=== PATIENT | female | born 1955 | race Caucasian/White ===

== ENCOUNTER 2017-05-22 09:12 | Inpatient (IN) | payer OTHER ==
[~2017-05-22] VITALS: Ht 170.2 cm; Wt 58.5 kg
[~2017-05-22 09:12] MED LIST: ACETAMINOPHEN-1 EAC1 PO; EVISTA PO; FLEXERIL PO; IBUPROFEN 800800 M1 PO; NEXIUM 40 MG CA40 M1 PO; NORCO 5-325 TA1 EACH PO; ZANAFLEX4 M1 PO; ZYRTEC 10 MG TA10 MG PO
[2017-05-22 09:34] VITALS: BP 127/82
[2017-05-22] MEDS ORDERED: ROPIVACAINE INH (09:37)
[2017-05-22 10:03] LABS: ABSOLUTE LYMPHOCYTES 1.2 thou/uL (0.8-5.3); ABSOLUTE MONOCYTES 1.3 thou/uL (0.0-1.2); ABSOLUTE NEUTROPHILS 6.2 thou/uL (1.6-8.1); BASOPHILS 0.5 %; HEMATOCRIT 48.9 % (37.0-47.0); HEMOGLOBIN 16.3 gm/dL (12.0-15.0); LYMPHOCYTES 13.4 %; MCH 29.5 pg (26.0-34.0); MCHC 33.3 g/dL (28.0-37.0); MCV 88.6 fL (80.0-100.0); MONOCYTES 14.8 %; MPV 9.1 fl. (7.2-11.1); NUCLEATED RBCS 0 /100WBC; PLATELET COUNT* 104 thou/uL (150-400); POLYS 71.3 %; RBC 5.52 mil/uL (4.20-5.00); RDW-CV 13.9 % (10.5-14.5); WBC 8.7 thou/uL (4.0-11.0)
[2017-05-22 10:13] LABS: INFLUENZA A ANTIGEN None Detected (None Detect); INFLUENZA B ANTIGEN None Detected (None Detect)
[2017-05-22 10:15] LABS: ANION GAP 9 mmol/L (7-16); APTT 29.7 Seconds (25.0-31.3); BUN 10 mg/dL (7-18); CALCIUM 9.3 mg/dL (8.5-10.1); CHLORIDE 99 mmol/L (98-107); CO2 27 mmol/L (21-32); GLUCOSE 114 mg/dL (70-99); PROTIME 9.8 Seconds (9.20-11.50); SODIUM 135 mmol/L (136-145)
[2017-05-22 10:27] LABS: ALBUMIN 4.1 g/dL (3.4-5.0); ALKALINE PHOSPHATASE 73 U/L (46-116); LIPASE 121 U/L (73-393); MAGNESIUM 2.1 mg/dL (1.8-2.4); SGOT 24 U/L (15-37); SGPT 29 U/L (30-65); TOTAL BILIRUBIN 0.3 mg/dL (<0.1-1.0); TROPONIN-I LEVEL <0.06 ng/mL (<0.06)
[2017-05-22 10:45] LABS: NT-PRO BRAIN NAT PEPTIDE 322 pg/mL (<300)
--- NOTE | 2017-05-22 12:10 | NUR ---
PT GIVEN LUNCH TRAY
--- NOTE | 2017-05-22 15:30 | NUR ---
A WHITE FEMALE AGE 62 ADMITTED TO ROOM 317 WITH CHEIF DIAGNOSIS OF BRONCHITIS, COPD EXAC, RESP FAILURE. PT TRANSPORTED VIA CART AND WAS ABLE TO TRANSFER SELF TO BED. PT HAS NONPRODUCTIVE "BARKY" TYPE COUGH. PT IS ON 02 AT 2.0 LITERS WITH O2 SATS 96%. PT REMANS SLIGHTLY DYSPENIC WHEN TALKING. RIGHT A/C SL NOTED. PT TOLERATING PO FLUIDS. FALL AGREEMENT SIGNED.
[2017-05-22 15:36] VITALS: BP 107/63
--- NOTE | 2017-05-22 16:22 | EKG ---
[place] [address] ELECTROCARDIOGRAM REPORT Name: ALEC BRIGGS Room: [address] ADM IN [facility].#: [id number] Admission: 05/22/17 Attend Phys: Yan Austin MD Discharge: Date of : 57 Report #: [id number] THIS REPORT FOR: //name// [facility] ED Test Date: 2017-05-22 Test Time: 09:43:54 Pat Name: ALEC BRIGGS Department: Room: [facility] Gender: F Volunteer Specialist: Lisa HARTMANN : 1955 Requested By: Jermaine Cifuentes Order Number: [id number] MD: Al Gaviria Measurements Intervals [place] Rate: 85 P: 79 IA: 130 QRS: 65 QRSD: 96 T: 89 QT: 356 QTc: 424 Interpretive Statements Sinus rhythm No previous ECG available for comparison Electronically Signed On 05-22-2017 16:21:52 LEAD ATG DEVELOPER by Al Gaviria [email or web address] <ELECTRONICALLY SIGNED> By: Al Gaviria MD, [facility] 05/22/17 1621 0943 0943 Al Gaviria MD, FACC /EPI
--- NOTE | 2017-05-22 19:03 | NUR ---
PT DOING WELL. SL INTACT. PT DID NOT LIKE SUPPER TRAY PT IS EATING BOX LUNCH. PT DENIES ANY COMPLAINTS. PT IS PROGRESSING TOWARDS GOALS.
[2017-05-23] VITALS: BP 120/65
[2017-05-23 05:36] LABS: HEMATOCRIT 46.7 % (37.0-47.0); HEMOGLOBIN 15.7 gm/dL (12.0-15.0); MCHC 33.6 g/dL (28.0-37.0); MCV 89.3 fL (80.0-100.0); MPV 9.7 fl. (7.2-11.1); NUCLEATED RBCS 0 /100WBC; PLATELET COUNT* 199 thou/uL (150-400); RBC 5.24 mil/uL (4.20-5.00); WBC 9.6 thou/uL (4.0-11.0)
--- NOTE | 2017-05-23 06:00 | NUR ---
PATIENT SLEPT MOST OF THE NIGHT. IV REMAINS SALINE LOCKED. PATIENT REMAINS ON OXYGEN AT 2L PER NASAL CANNULA. WILL CONTINUE TO MONITOR.
[2017-05-23 06:08] LABS: CALCIUM 9.3 mg/dL (8.5-10.1); CREATININE 0.8 mg/dL (0.6-1.3); POTASSIUM 4.6 mmol/L (3.5-5.1)
[2017-05-23 06:16] LABS: ABSOLUTE LYMPHOCYTES 1.2 thou/uL (0.8-5.3); ABSOLUTE MONOCYTES 0.1 thou/uL (0.0-1.2); ABSOLUTE NEUTROPHILS 8.3 thou/uL (1.6-8.1); ANISOCYTOSIS 1+; PLATELET ESTIMATE ADEQUATE; POIKILOCYTOSIS 1+
[2017-05-23 08:45] VITALS: BP 122/65
--- NOTE | 2017-05-23 09:40 | NUR ---
INITIAL ASSESSMENT: Pt evaluated for d/c planning needs. Reviewed chart and spoke with nurse and pt. Pt is alert and oriented. Pt lives in house with spouse and grandchildren. Pt was independent with ADL's and is employed outside the home at [employer]. Pt has cane from previous foot injury, but does not use. Pt has not had home health in the past. Pt plans on returning home on d/c from hospital. Will remain available to assist as needed.
[2017-05-23 16:05] VITALS: BP 101/64
--- NOTE | 2017-05-23 16:10 | NUR ---
PATIENT REMAINS ON 2L NC. NO COMPLAINTS THIS SHIFT. IV REMAINS SL, SCHED ABX AND STEROIDS. UP AMBULATING IN HALLWAY WITHOUT DIFFICULTY.
[2017-05-23 20:30] VITALS: BP 112/64
[2017-05-24 05:08] LABS: ABSOLUTE LYMPHOCYTES 1.3 thou/uL (0.8-5.3); ABSOLUTE NEUTROPHILS 14.1 thou/uL (1.6-8.1); BASOPHILS 0.1 %; HEMOGLOBIN 14.3 gm/dL (12.0-15.0); MCH 29.7 pg (26.0-34.0); MCHC 33.2 g/dL (28.0-37.0); MCV 89.5 fL (80.0-100.0); MONOCYTES 6.3 %; MPV 10.3 fl. (7.2-11.1); NUCLEATED RBCS 0 /100WBC; POLYS 85.6 %; RBC 4.81 mil/uL (4.20-5.00); RDW-CV 13.8 % (10.5-14.5); WBC 16.5 thou/uL (4.0-11.0)
--- NOTE | 2017-05-24 05:10 | NUR ---
ASSUMED CARE OF PT AT 1900 PT ALERT AND ORIENTED X4 VS AND ASSESSMENT STABLE. PT DENIED ANY COMPLAINTS AND SLEPT THROUGH THE NIGHT WILL MONITOR.
[2017-05-24 05:19] LABS: POTASSIUM 4.8 mmol/L (3.5-5.1)
[2017-05-24 06:44] LABS: CLUMPED PLTS MODERATE; GIANT PLATELETS FEW
[2017-05-24 06:48] LABS: PLATELET COUNT* 100 thou/uL (150-400)
[2017-05-24 08:30] VITALS: BP 119/70
[2017-05-24 15:57] VITALS: BP 100/65
--- NOTE | 2017-05-24 16:04 | NUR ---
PATIENT UP AND AMBULATING THE HALLS THIS SHIFT. REMAINS ON RA, NO SOA NOTED. IV ABX AND STEROIDS CHANGED TO PO THIS SHIFT. POSSIBLE DISCHARGE TOMORROW.
--- NOTE | 2017-05-24 16:33 | NUR ---
Following for d/c planning needs. Physician said that pt may be ready for d/c on Saturday. Pt said she plans on returning home on Saturday with her and son. Will remain available to assist as needed.
[2017-05-24 20:00] VITALS: BP 131/75
--- NOTE | 2017-05-25 07:31 | NUR ---
PATIENT SLEPT PART OF THE NIGHT. PATIENT REMAINS ON ROOM AIR SATTING 96%. PATIENT STARTED COMPLAINING OF RIGHT SIDE RIB/ABDOMINAL PAIN. PAIN PILLS WERE GIVEN ONCE. PATIENT STATES SHE THINKS IT MIGHT BE HER DIVERTICULITIS ACTING UP. PATIENT IS POSSIBLY GOING HOME TODAY. WILL CONTINUE TO MONITOR.
[2017-05-25 08:00] VITALS: BP 131/76
[2017-05-25 16:00] VITALS: BP 120/80
--- NOTE | 2017-05-25 16:06 | NUR ---
PT UP IN HALLS WITH STEADY GAIT. PT REPORTS RIGHT UPPER QUAD/RIB PAIN. PAIN WELL CONTROLLED WITH PO MEDS. PT TOLERATING PO WELL.
[2017-05-25 16:52] LABS: HEMATOCRIT 45.5 % (37.0-47.0); MCH 29.4 pg (26.0-34.0); MCHC 32.9 g/dL (28.0-37.0); MCV 89.6 fL (80.0-100.0); MPV 10.1 fl. (7.2-11.1); RBC 5.08 mil/uL (4.20-5.00); RDW-CV 14.4 % (10.5-14.5); WBC 11.1 thou/uL (4.0-11.0)
[2017-05-25 17:03] LABS: CALCIUM 9.1 mg/dL (8.5-10.1); MAGNESIUM 2.1 mg/dL (1.8-2.4); POTASSIUM 4.4 mmol/L (3.5-5.1)
[2017-05-25 23:53] VITALS: BP 133/62
[2017-05-26 04:21] LABS: HEMATOCRIT 42.3 % (37.0-47.0); HEMOGLOBIN 14.1 gm/dL (12.0-15.0); MCH 29.6 pg (26.0-34.0); MCHC 33.4 g/dL (28.0-37.0); MCV 88.5 fL (80.0-100.0); MPV 9.9 fl. (7.2-11.1); RBC 4.78 mil/uL (4.20-5.00); RDW-CV 13.9 % (10.5-14.5); WBC 9.7 thou/uL (4.0-11.0)
[2017-05-26 04:51] LABS: CALCIUM 8.7 mg/dL (8.5-10.1); POTASSIUM 4.1 mmol/L (3.5-5.1)
--- NOTE | 2017-05-26 06:13 | NUR ---
PATIENT SLEPT MOST OF THE NIGHT. PATIENT WAS GIVEN PAIN MEDICINE ONCE THIS SHIFT. PATIENT IS NPO FOR AN ABDOMINAL ULTRASOUND. WILL CONTINUE TO MONITOR.
[2017-05-26 08:00] VITALS: BP 124/67
[2017-05-26 15:59] VITALS: BP 133/78
[2017-05-26] MEDS ORDERED: PROTONIX40 M1 PO (16:56)
[2017-05-26] MEDS ORDERED: AUGMENTIN 875-1 EACH PO (17:01)
[2017-05-26] MEDS ORDERED: PREDNISONE 20 M20 MG PO (17:02)
[2017-05-26] MEDS ORDERED: MUCINEX DM ER1 EACH PO (17:03)
[2017-05-26] MEDS ORDERED: MIRALAX17 GM PO (17:07)
[2017-05-26 17:08] VITALS: BP 133/78
[2017-05-26 17:10] VITALS: BP 133/78
== END 2017-05-26 17:47 | disposition home or self-care (01) | DRG 189 ==
LOC: M.ERS 09:12 → M.3W 10:37 → M.TBA-ER 10:37 → M.3W 15:47
PROVIDERS: Family Medicine; ADMIT Internal Medicine
DX: J96.21 Acute and chronic respiratory failure with hypoxia (principal); J44.1 Chronic obstructive pulmonary disease with (acute) exacerbation; J44.0 Chronic obstructive pulmonary disease with (acute) lower respiratory infection; E78.00 Pure hypercholesterolemia, unspecified; K21.9 Gastro-esophageal reflux disease without esophagitis; Z77.22 Contact with and (suspected) exposure to environmental tobacco smoke (acute) (chronic); J20.9 Acute bronchitis, unspecified; D75.1 Secondary polycythemia; E86.0 Dehydration; Z90.710 Acquired absence of both cervix and uterus; Z87.891 Personal history of nicotine dependence; Z90.49 Acquired absence of other specified parts of digestive tract; Z86.010 Personal history of colon polyps; Z79.899 Other long term (current) drug therapy

== ENCOUNTER 2018-07-14 20:14 | Emergency (ER) | payer OTHER ==
[~2018-07-14] VITALS: Ht 170.2 cm; Wt 56.7 kg
[~2018-07-14 20:14] MED LIST changes: +AUGMENTIN 875-1 EACH PO; +MIRALAX17 GM PO; +MUCINEX DM ER1 EACH PO; +PREDNISONE 20 M20 MG PO; +PROTONIX40 M1 PO; +ROPIVACAINE INH
[2018-07-14 21:21] LABS: ABSOLUTE EOSINOPHILS 0.1 thou/uL (0.0-0.7); ABSOLUTE LYMPHOCYTES 1.9 thou/uL (0.8-5.3); ABSOLUTE MONOCYTES 0.8 thou/uL (0.0-1.2); ABSOLUTE NEUTROPHILS 4.4 thou/uL (1.6-8.1); BASOPHILS 0.5 %; EOSINOPHILS 0.9 %; HEMATOCRIT 44.2 % (37.0-47.0); HEMOGLOBIN 14.9 gm/dL (12.0-15.0); MCH 29.7 pg (26.0-34.0); MCHC 33.8 g/dL (28.0-37.0); MONOCYTES 11.1 %; MPV 9.3 fl. (7.2-11.1); NUCLEATED RBCS 0 /100WBC; POLYS 61.5 %; RBC 5.03 mil/uL (4.20-5.00); RDW-CV 13.7 % (10.5-14.5); WBC 7.1 thou/uL (4.0-11.0)
[2018-07-14 21:25] LABS: ALBUMIN 3.8 g/dL (3.4-5.0); ALKALINE PHOSPHATASE 62 U/L (46-116); ANION GAP 6 mmol/L (7-16); BUN 15 mg/dL (7-18); CALCIUM 9.1 mg/dL (8.5-10.1); CHLORIDE 103 mmol/L (98-107); CO2 28 mmol/L (21-32); GLUCOSE 133 mg/dL (70-99); POTASSIUM 3.7 mmol/L (3.5-5.1); SGOT 24 U/L (15-37); SGPT 26 U/L (30-65); SODIUM 137 mmol/L (136-145); TOTAL BILIRUBIN 0.4 mg/dL (<0.1-1.0); TOTAL PROTEIN 7.1 g/dL (6.4-8.2); TROPONIN-I LEVEL <0.06 ng/mL (<0.06)
[2018-07-14] MEDS ORDERED: XANAX 1 MG TABLE1 MG PO (21:25)
[2018-07-14 22:00] VITALS: BP 147/85
[2018-07-14 22:44] LABS: CLUMPED PLTS MODERATE; PLATELET ESTIMATE ADEQUATE
[2018-07-14 22:45] LABS: LARGE PLATELETS RARE
[2018-07-14 22:55] LABS: PLATELET COUNT* 156 thou/uL (150-400)
--- NOTE | 2018-07-15 12:54 | EKG ---
[place] [address] ELECTROCARDIOGRAM REPORT Name: ALEC BRIGGS Room: [facility]#: [id number] Admission: 07/14/18 Attend Phys: Discharge: 07/14/18 Date of : 57 Report #: [id number] THIS REPORT FOR: //name// [facility] ED Test Date: 2018-07-14 Test Time: 20:29:45 Pat Name: ALEC BRIGGS Department: Room: Gender: F Needle Setter: : 1955 Requested By: Glory Wall Order Number: [id number] MD: Cheko Jones Measurements Intervals [place] Rate: 79 P: 75 UT: 147 QRS: 42 QRSD: 104 T: 62 QT: 406 QTc: 466 Interpretive Statements Sinus rhythm Baseline wander in lead(s) V5 Compared to ECG 05/22/2017 09:43:54 No significant changes Electronically Signed On 07-15-2018 12:54:01 ATMOSPHERIC SCIENCES PROFESSOR by Cheko Jones [email or web address] <ELECTRONICALLY SIGNED> By: Cheko Jones MD, [facility] 07/15/18 1254 28 28 Cheko Jones MD, FACC /EPI
== END 2018-07-14 22:00 | disposition home or self-care (01) ==
LOC: M.ERS 20:14
PROVIDERS: Emergency Medicine
DX: F41.9 Anxiety disorder, unspecified (principal); E78.00 Pure hypercholesterolemia, unspecified; K21.9 Gastro-esophageal reflux disease without esophagitis; Z90.49 Acquired absence of other specified parts of digestive tract; Z90.710 Acquired absence of both cervix and uterus; Z77.22 Contact with and (suspected) exposure to environmental tobacco smoke (acute) (chronic)

== ENCOUNTER 2020-01-23 23:16 | Emergency (ER) | payer OTHER ==
[~2020-01-23] VITALS: Ht 170.2 cm; Wt 59.0 kg
[~2020-01-23 23:16] MED LIST changes: +XANAX 1 MG TABLE1 MG PO
[2020-01-24] MEDS ORDERED: XANAX 1 MG TABLE1 MG PO (00:29)
[2020-01-24 01:05] VITALS: BP 103/64
--- NOTE | 2020-01-25 17:37 | EKG ---
[place] [address] ELECTROCARDIOGRAM REPORT Name: ALEC BRIGGS Room: [facility]#: [id number] Admission: 01/23/20 Attend Phys: Discharge: 01/24/20 Date of : 57 Date of Service: 01/23/20 2328 Report #: [id number] THIS REPORT FOR: //name// [facility] ED Test Date: 2020-01-23 Test Time: 23:28:28 Pat Name: ALEC BRIGGS Department: Room: Gender: F Review Rn: : 1955 Requested By: Glory Wall Order Number: [id number] MD: Aly Sanford Measurements Intervals [place] Rate: 76 P: 74 [place]: 158 QRS: 56 QRSD: 113 T: 45 QT: 417 QTc: 469 Interpretive Statements Sinus rhythm Ventricular premature complex Borderline intraventricular conduction delay WA interval depression Compared to ECG 07/14/2018 20:29:45 Ventricular premature complex(es) now present Electronically Signed On 01-25-2020 17:37:32 CDT by Aly Sanford [email or web address] <ELECTRONICALLY SIGNED> By: Aly Sanford MD, FACC 01/25/20 1737 2328 2328 Aly Sanford MD, [facility] /EPI
== END 2020-01-24 01:05 | disposition home or self-care (01) ==
LOC: M.ERS 23:16
DX: F41.9 Anxiety disorder, unspecified (principal); Z77.22 Contact with and (suspected) exposure to environmental tobacco smoke (acute) (chronic); E78.00 Pure hypercholesterolemia, unspecified; K21.9 Gastro-esophageal reflux disease without esophagitis; Z90.710 Acquired absence of both cervix and uterus

== ENCOUNTER 2020-07-07 12:21 | Emergency (ER) | payer OTHER ==
[~2020-07-07] VITALS: Ht 167.6 cm; Wt 59.0 kg
[2020-07-07 12:54] LABS: ABSOLUTE BASOPHILS 0.1 thou/uL (0.0-0.2); ABSOLUTE EOSINOPHILS 0.1 thou/uL (0.0-0.7); ABSOLUTE LYMPHOCYTES 2.4 thou/uL (0.8-5.3); ABSOLUTE MONOCYTES 0.7 thou/uL (0.0-1.2); ABSOLUTE NEUTROPHILS 5.3 thou/uL (1.6-8.1); BASOPHILS 1.1 %; EOSINOPHILS 1.2 %; HEMATOCRIT 45.4 % (37.0-47.0); HEMOGLOBIN 15.3 gm/dL (12.0-15.0); LYMPHOCYTES 27.9 %; MCH 30.3 pg (26.0-34.0); MCHC 33.7 g/dL (28.0-37.0); MONOCYTES 8.2 %; MPV 8.5 fl. (7.2-11.1); NUCLEATED RBCS 0 /100WBC; POLYS 61.6 %; RBC 5.05 mil/uL (4.20-5.00); RDW-CV 13.8 % (10.5-14.5); WBC 8.6 thou/uL (4.0-11.0)
[2020-07-07 13:10] LABS: URINE BILIRUBIN NEGATIVE (Negative); URINE BLOOD NEGATIVE (Negative); URINE CLARITY CLEAR; URINE COLOR YELLOW; URINE GLUCOSE-RANDOM NEGATIVE (Negative); URINE KETONES NEGATIVE (Negative); URINE LEUKOCYTES-REFLEX NEGATIVE (Negative); URINE NITRITE-REFLEX NEGATIVE (Negative); URINE PROTEIN NEGATIVE (Negative); URINE SPECIFIC GRAVITY <= 1.005 (1.005-1.030); URINE UROBILINOGEN 0.2 E.U./dl (0.2-1.0)
[2020-07-07 13:13] LABS: CREATININE 1.1 mg/dL (0.6-1.3); POTASSIUM 3.5 mmol/L (3.5-5.1)
[2020-07-07 13:17] LABS: ALBUMIN 3.8 g/dL (3.4-5.0); TOTAL BILIRUBIN 0.3 mg/dL (<0.1-1.0)
[2020-07-07 13:37] LABS: PLATELET COUNT* 112 thou/uL (150-400)
[2020-07-07] MEDS ORDERED: HYDROCODON-ACE1 EAC7 PO (15:15)
[2020-07-07 15:37] VITALS: BP 126/74
--- NOTE | 2020-07-07 16:34 | EKG ---
[place] [address] ELECTROCARDIOGRAM REPORT Name: ALEC BRIGGS Room: [facility].#: [id number] Admission: 07/07/20 Attend Phys: Discharge: 07/07/20 Date of : 57 Date of Service: 07/07/20 1229 Report #: [id number] THIS REPORT FOR: //name// [facility] ED Test Date: 2020-07-07 Test Time: 12:29:24 Pat Name: ALEC BRIGGS Department: Room: Gender: F Door Manager: DSL : 1955 Requested By: Bony Christy Order Number: [id number] MD: Aly Sanford Measurements Intervals [place] Rate: 84 P: 81 MN: 133 QRS: 61 QRSD: 98 T: 61 QT: 389 QTc: 460 Interpretive Statements Sinus rhythm Minimal ST depression, anterolateral leads Compared to ECG 01/23/2020 23:28:28 ST (T wave) deviation now present Ventricular premature complex(es) no longer present Electronically Signed On 07-07-2020 16:34:40 HOME CARE MANAGER RN by Aly Sanford [email or web address] <ELECTRONICALLY SIGNED> By: Aly Sanford MD, FACC 07/07/20 1634 1229 1229 Aly Sanford MD, [facility] /EPI
--- NOTE | 2020-07-08 09:26 | EKG ---
[place] [address] ELECTROCARDIOGRAM REPORT Name: ALEC BRIGGS Room: [facility].#: [id number] Admission: 07/07/20 Attend Phys: Discharge: 07/07/20 Date of : 57 Date of Service: 07/07/20 1514 Report #: [id number] THIS REPORT FOR: //name// [facility] ED Test Date: 2020-07-07 Test Time: 15:14:14 Pat Name: ALEC BRIGGS Department: Room: Gender: F Glass Beveller: TDS : 1955 Requested By: Bony Christy Order Number: [id number] MD: Cheko Jones Measurements Intervals [place] Rate: 61 P: 77 SD: 146 QRS: 62 QRSD: 110 T: 60 QT: 442 QTc: 446 Interpretive Statements Sinus rhythm Atrial premature complex Abnormal R-wave progression, early transition Compared to ECG 07/07/2020 12:29:24 Atrial premature complex(es) now present ST (T wave) deviation no longer present Electronically Signed On 07-08-2020 9:26:33 EDUCATIONAL INSTITUTION PRESIDENT by Cheko Jones [email or web address] <ELECTRONICALLY SIGNED> By: Cheko Jones MD, FAC 07/08/20 0926 1514 1514 Cheko Jones MD, FAC /EPI
== END 2020-07-07 15:38 | disposition home or self-care (01) ==
LOC: M.ERS 12:21
PROVIDERS: Emergency Medicine Emergency Medical Services
DX: M94.0 Chondrocostal junction syndrome [Tietze] (principal); R05 Cough; J44.9 Chronic obstructive pulmonary disease, unspecified; E78.00 Pure hypercholesterolemia, unspecified; K21.9 Gastro-esophageal reflux disease without esophagitis; Z90.711 Acquired absence of uterus with remaining cervical stump; Z90.49 Acquired absence of other specified parts of digestive tract; Z79.899 Other long term (current) drug therapy; Z87.891 Personal history of nicotine dependence

== ENCOUNTER → 2021-04-27 | Day surgery (SDC) | payer OTHER ==
[~2021-04-27] MED LIST changes: +HYDROCODON-ACE1 EAC7 PO; +NORCO5 PO; +PROAIR HFA8.5 GM INH; +SINGULAIR 10 MG10 MG PO; +TRELEGY ELLIPT1 EACH INH; +ZOLOFT50 M1 PO
[2021-04-27 06:55] LABS: HEMATOCRIT 45.5 % (37.0-47.0); HEMOGLOBIN 15.3 gm/dL (12.0-15.0); MCHC 33.6 g/dL (28.0-37.0); MCV 89.1 fL (80.0-100.0); RBC 5.11 mil/uL (4.20-5.00); RDW-CV 13.7 % (10.5-14.5); WBC 6.2 thou/uL (4.0-11.0)
[2021-04-27 07:10] LABS: CALCIUM 8.3 mg/dL (8.5-10.1); CREATININE 0.9 mg/dL (0.6-1.3); POTASSIUM 3.7 mmol/L (3.5-5.1)
[2021-04-27 07:20] LABS: ALBUMIN 3.4 g/dL (3.4-5.0); TOTAL BILIRUBIN 0.3 mg/dL (<0.1-1.0); TOTAL PROTEIN 6.5 g/dL (6.4-8.2)
--- NOTE | 2021-04-27 11:55 | EKG ---
[place] [address] ELECTROCARDIOGRAM REPORT Name: ALEC BRIGGS Room: [facility].#: [id number] Admission: 04/27/21 Attend Phys: Buster [place] Discharge: Date of : 57 Date of Service: 04/27/21710 Report #: [id number] THIS REPORT FOR: //name// [facility] Test Date: 2021-04-27 Test Time: 07:11:05 Pat Name: ALEC BRIGGS Department: Room: Gender: Account Director: : 1955 Requested By: Christie Medina Order Number: [id number] MD: Cheko Jones Measurements Intervals [place] Rate: 53 P: 73 NM: 149 QRS: 59 QRSD: 113 T: 67 QT: 454 QTc: 427 Interpretive Statements Sinus rhythm Compared to ECG 07/07/2020 15:14:14 Atrial premature complex(es) no longer present Electronically Signed On 04-27-2021 11:54:44 FISH CLEANER MACHINE TENDER by Cheko Jones [email or web address] <ELECTRONICALLY SIGNED> By: Cheko Jones MD, [facility] 04/27/21 1154 0711 0711 Cheko Jones MD, [facility] /EPI
--- NOTE | 2021-04-29 12:00 | OP ---
[facility] [address] [place] [address] OPERATIVE REPORT Name: ALEC BRIGGS Room: [facility]#: [id number] Admission: 04/27/21 Attend Phys: Buster Prieto Discharge: Date of : 57 Report #: [id number] THIS REPORT FOR: cc: Shantanu Burns MD, Anthony MD Patterson,Buster Williamson MD ~ DATE OF SURGERY: 04/27/2021 PREOPERATIVE DIAGNOSIS: Chronic cholecystitis. POSTOPERATIVE DIAGNOSIS: Chronic cholecystitis. OPERATION: Laparoscopic cholecystectomy. SURGEON: Buster Prieto MD. ANESTHESIA: General. ESTIMATED BLOOD LOSS: Minimal. SPECIMENS: Gallbladder. DESCRIPTION OF PROCEDURE: After informed consent was obtained, the patient was brought to the operating room and placed supine. SCDs were placed and working, preoperative antibiotics were administered. General anesthesia was induced. The abdomen was prepped and draped in the usual sterile fashion. A 10 mm incision was made below the umbilicus. Fascia was incised and a trocar was placed. A pneumoperitoneum was established. Three right upper quadrant 5 mm ports were placed. Gallbladder was grasped at the fundus and retracted cephalad. Infundibulum was grasped and retracted laterally. I dissected out the cystic duct and cystic artery. Cystic plate was fully identified. The cystic duct and artery were clipped and ligated leaving 2 clips on the remaining duct and one remaining artery. Gallbladder was then taken off the liver bed with electrocautery. It was placed in an Endopouch and removed. Fascia was then closed with a [id number] 0 Vicryl. Skin was closed with 4-0 Monocryl. Incisions were dressed with Steri-Strips. COMPLICATIONS: None. DISPOSITION: The patient was taken to recovery in satisfactory condition. <ELECTRONICALLY SIGNED> By: Buster Prieto MD 04/29/21 1200 1127 1203Buster Prieto MD /nt
== END | disposition home or self-care (01) ==
LOC: M.SUR 06:11
PROVIDERS: Anesthesiology; ATTEND Surgery
DX: K81.1 Chronic cholecystitis (principal); R10.11 Right upper quadrant pain; J44.9 Chronic obstructive pulmonary disease, unspecified; E78.00 Pure hypercholesterolemia, unspecified; K21.9 Gastro-esophageal reflux disease without esophagitis; M85.80 Other specified disorders of bone density and structure, unspecified site; F41.9 Anxiety disorder, unspecified; Z98.890 Other specified postprocedural states; Z79.899 Other long term (current) drug therapy; Z91.040 Latex allergy status; Z90.49 Acquired absence of other specified parts of digestive tract; Z87.891 Personal history of nicotine dependence

== ENCOUNTER 2021-05-25 19:53 | Emergency (ER) | payer OTHER ==
[~2021-05-25] VITALS: Ht 170.2 cm; Wt 54.0 kg
[2021-05-25 20:27] LABS: URINE BILIRUBIN NEGATIVE (Negative); URINE BLOOD 2+ (Negative); URINE CLARITY CLEAR; URINE COLOR YELLOW; URINE GLUCOSE-RANDOM NEGATIVE (Negative); URINE KETONES NEGATIVE (Negative); URINE LEUKOCYTES NEGATIVE (Negative); URINE NITRITE NEGATIVE (Negative); URINE PROTEIN NEGATIVE (Negative); URINE SPECIFIC GRAVITY 1.025 (1.005-1.030); URINE UROBILINOGEN 0.2 E.U./dl (0.2-1.0)
[2021-05-25 20:30] LABS: BACTERIA None Seen /HPF (None Seen); SQUAMOUS 0-3 Few /LPF (0-3); URINE RBC 0-2 Rare /HPF (0-2); URINE WBC None Seen /HPF (0-5)
[2021-05-25 20:31] LABS: CASTS None Seen /LPF (None Seen); CRYSTALS None Seen /LPF (None Seen)
[2021-05-25 21:26] LABS: ABSOLUTE BASOPHILS 0.1 thou/uL (0.0-0.2); ABSOLUTE EOSINOPHILS 0.1 thou/uL (0.0-0.7); ABSOLUTE LYMPHOCYTES 1.2 thou/uL (0.8-5.3); ABSOLUTE NEUTROPHILS 3.7 thou/uL (1.6-8.1); HEMATOCRIT 44.7 % (37.0-47.0); HEMOGLOBIN 14.8 gm/dL (12.0-15.0); LYMPHOCYTES 20.4 %; MCH 29.7 pg (26.0-34.0); MCHC 33.1 g/dL (28.0-37.0); MCV 89.9 fL (80.0-100.0); MONOCYTES 16.8 %; MPV 10.3 fl. (7.2-11.1); NUCLEATED RBCS 0 /100WBC; PLATELET COUNT* 82 thou/uL (150-400); POLYS 60.8 %; RBC 4.97 mil/uL (4.20-5.00); RDW-CV 13.3 % (10.5-14.5); WBC 6.1 thou/uL (4.0-11.0)
[2021-05-25 22:04] LABS: CALCIUM 8.7 mg/dL (8.5-10.1)
[2021-05-25 22:08] LABS: ALBUMIN 3.6 g/dL (3.4-5.0); TOTAL BILIRUBIN 0.2 mg/dL (<0.1-1.0); TOTAL PROTEIN 6.4 g/dL (6.4-8.2)
[2021-05-25 22:56] VITALS: BP 140/68
--- NOTE | 2021-05-26 13:11 | EKG ---
[place] [address] ELECTROCARDIOGRAM REPORT Name: ALEC BRIGGS Room: [facility]#: [id number] Admission: 05/25/21 Attend Phys: Discharge: 05/25/21 Date of : 57 Date of Service: 05/25/212151 Report #: [id number] THIS REPORT FOR: //name// [facility] ED Test Date: 2021-05-25 Test Time: 21:52:06 Pat Name: ALEC BRIGGS Department: Room: Gender: F Pad Machine Offbearer: [facility] : 1955 Requested By: Salvatore Santo Order Number: [id number] MD: Cheko Jones Measurements Intervals [place] Rate: 66 P: 70 AL: 143 QRS: 52 QRSD: 108 T: 67 QT: 424 QTc: 445 Interpretive Statements Sinus rhythm Ventricular premature complex Minimal ST depression, anterior leads Compared to ECG 04/27/2021 07:11:05 Ventricular premature complex(es) now present ST (T wave) deviation now present Electronically Signed On 05-26-2021 13:10:55 NAVAL AIRCREWMAN by Cheko Jones [email or web address] <ELECTRONICALLY SIGNED> By: Cheko Jones MD, FAC 05/26/21 1310 51 51 Cheko Jones MD, FAC /EPI
== END 2021-05-25 22:56 | disposition home or self-care (01) ==
LOC: M.ERS 19:53
PROVIDERS: Physician Assistant
DX: R10.11 Right upper quadrant pain (principal); R06.02 Shortness of breath; J44.9 Chronic obstructive pulmonary disease, unspecified; K21.9 Gastro-esophageal reflux disease without esophagitis; E78.00 Pure hypercholesterolemia, unspecified; Z90.49 Acquired absence of other specified parts of digestive tract; Z98.890 Other specified postprocedural states; Z90.710 Acquired absence of both cervix and uterus; Z79.899 Other long term (current) drug therapy; Z91.040 Latex allergy status; Z87.891 Personal history of nicotine dependence

== ENCOUNTER 2021-06-09 23:24 | Emergency (ER) | payer OTHER ==
[~2021-06-09] VITALS: Ht 170.2 cm; Wt 54.0 kg
[2021-06-10 00:22] LABS: ABSOLUTE BASOPHILS 0.1 thou/uL (0.0-0.2); ABSOLUTE EOSINOPHILS 0.1 thou/uL (0.0-0.7); ABSOLUTE LYMPHOCYTES 2.5 thou/uL (0.8-5.3); ABSOLUTE MONOCYTES 0.6 thou/uL (0.0-1.2); ABSOLUTE NEUTROPHILS 3.3 thou/uL (1.6-8.1); EOSINOPHILS 2.1 %; HEMATOCRIT 45.7 % (37.0-47.0); HEMOGLOBIN 15.2 gm/dL (12.0-15.0); LYMPHOCYTES 37.7 %; MCH 30.1 pg (26.0-34.0); MCHC 33.3 g/dL (28.0-37.0); MCV 90.2 fL (80.0-100.0); MONOCYTES 8.6 %; MPV 9.2 fl. (7.2-11.1); NUCLEATED RBCS 0 /100WBC; PLATELET COUNT* 205 thou/uL (150-400); POLYS 50.6 %; RBC 5.07 mil/uL (4.20-5.00); RDW-CV 13.8 % (10.5-14.5); WBC 6.6 thou/uL (4.0-11.0)
[2021-06-10 01:09] LABS: CALCIUM 8.5 mg/dL (8.5-10.1); CREATININE 0.7 mg/dL (0.6-1.3); POTASSIUM 3.6 mmol/L (3.5-5.1)
[2021-06-10 01:14] LABS: ALBUMIN 3.6 g/dL (3.4-5.0); TOTAL BILIRUBIN 0.3 mg/dL (<0.1-1.0); TOTAL PROTEIN 6.9 g/dL (6.4-8.2)
[2021-06-10] MEDS ORDERED: HYDROCODON-ACE1 EAC8 PO ×3 (03:12→11:50)
[2021-06-10 03:20] VITALS: BP 122/78
[2021-06-10 03:50] LABS: URINE BILIRUBIN NEGATIVE (Negative); URINE BLOOD NEGATIVE (Negative); URINE CLARITY CLEAR; URINE COLOR YELLOW; URINE GLUCOSE-RANDOM NEGATIVE (Negative); URINE KETONES NEGATIVE (Negative); URINE LEUKOCYTES-REFLEX NEGATIVE (Negative); URINE NITRITE-REFLEX NEGATIVE (Negative); URINE PROTEIN NEGATIVE (Negative); URINE SPECIFIC GRAVITY <= 1.005 (1.005-1.030); URINE UROBILINOGEN 0.2 E.U./dl (0.2-1.0)
== END 2021-06-10 03:20 | disposition home or self-care (01) ==
LOC: M.ERS 23:24
PROVIDERS: Emergency Medicine
DX: M79.10 Myalgia, unspecified site (principal); E78.00 Pure hypercholesterolemia, unspecified; K21.9 Gastro-esophageal reflux disease without esophagitis; Z90.710 Acquired absence of both cervix and uterus; Z98.890 Other specified postprocedural states; Z90.89 Acquired absence of other organs; Z90.49 Acquired absence of other specified parts of digestive tract; Z79.51 Long term (current) use of inhaled steroids; Z79.899 Other long term (current) drug therapy; Z91.040 Latex allergy status; Z87.891 Personal history of nicotine dependence; V49.3XXA Car occupant (driver) (passenger) injured in unspecified nontraffic accident, initial encounter; Y93.89 Activity, other specified; Y92.89 Other specified places as the place of occurrence of the external cause; Y99.8 Other external cause status